=== PATIENT | female | born 1995 | race Caucasian/White ===

== ENCOUNTER 2018-07-29 08:39 | Inpatient (IN) ==
--- NOTE | 2018-07-29 09:35 | P.HPOB ---
History of Present Illness Service: obstetrics Primary Care Physician: NOT REQUIRED Chief Complaint: scheduled repeat at term History of Present Illness: 22 yo with EDC 08/03/18 admit for scheduled repeat at 39w2d due to hx of for desired elective repeat. care uncomplicated except for hx of and obesity . Total weight gain during 11 pounds. Normal growth on ultrasound and reactive testing in office. GBS +. No LOF or VB, good FM, no regular contractions. Pain 2/10 low pelvic pressure. Weeks Gestation:: 39 Para: 1 : 2 Total # of Miscarriage(s): 0 Total # of Abortions (Spontaneous & Elective): 0 - Inpatient Certification I certify that the inpatient services were ordered in accordance with Medicare regulations governing the order. This includes certification that hospital inpatient services are reasonable and necessary and in the case of services not specified as inpatient-only under 42 CFR 419.22(n), that they are appropriately provided as inpatient services in accordance to with the 2-midnight benchmark under 43 CFR 412.3(e) Estimated Total Length of Stay (Days): 4 Plans for Post Hospital Care: Home Review of Systems All other systems reviewed negative except as stated in HPI PMFSH - Medical / Surgical Hx Neg / Unobtainable Medical Problems Denied: Yes - Surgical History Surgical History: Surgical History (Last Updated 06/09/18 @ 18:17 by Rigoberto Perez MD) Previous section - Family History Family History: Family History (Last Updated 07/29/18 @ 09:32 by Aliyah Weston MD) Other No significant family history - Social History I have reviewed the patient's Social History: Yes - Tobacco History Second Hand Smoke Exposure: No Tobacco Use In Past 30 Days: No Smoking Status: Never smoker - Alcohol History How Often Do You Have a Drink Containing Alcohol: Never - Substance Use History Substance History: No History of Abuse - Travel History History of Recent Travel: No Recent Travel in the [place] Within the Last 8 Weeks: No Recent Travel Out of the Country Within the Last 8 Weeks: No - Immunization History Hx Influenza Vaccine This Season: No Medications and Allergies Allergies Allergy/AdvReac Type Severity Reaction Status Date / Time No Known Allergies Allergy Verified 06/09/18 18:16 Home Medications Medication Instructions Recorded Confirmed Type vit,[id number] 1 tab PO DAILY 06/09/18 07/29/18 History [PNV 29-1] Exam Vital signs: Vital Signs 07/29/18 09:04 Temperature 98.1 F Pulse Rate 84 Respiratory Rate 17 Blood Pressure 140/78 Intake & Output 07/28/18 07/29/18 07/29/18 18:59 06:59 18:59 Weight 107.048 kg Other: Weight On Admission 107.048 kg - Constitutional no acute distress - Routine HEENT Exam Head: Present: normocephalic, atraumatic Eye: Present: EOMI, PERRL ENT: Present: mucous membranes moist - Routine Neck Exam Present: supple, full ROM - Routine Chest/Breast/Axilla Exam Chest wall: Absent: tenderness, mass - Routine Respiratory Exam Present: CTA bilaterally. Absent: accessory muscle use - Routine Cardiovascular Exam Present: RRR. Absent: bradycardia - Routine Abdominal Exam Absent: tenderness Comments: gravid c/w dates - Routine Extremities Exam Absent: cyanosis, clubbing - Routine Skin Exam Present: intact. Absent: cyanosis - Routine Neurological Exam Present: alert, oriented X3 Results - Labs Group B Strep: Positive Caprini VTE Risk Assessment Caprini VTE Risk Assessment: No/Low Risk (score <= 1) VTE Pharmacological Exception Reason: Epidural catheter Caprini Risk Assessment Model: Point Value = 1 Point Value = 2 Point Value = 3 Point Value = 5 Age 41-60 Minor surgery BMI > 25 kg/m2 Swollen legs Varicose veins or History of unexplained or recurrent spontaneous Oral contraceptives or hormone replacement Sepsis (< 1 month) Serious lung disease, including pneumonia (< 1 month) Abnormal pulmonary function Acute myocardial infarction Congestive heart failure (< 1 month) History of inflammatory bowel disease Medical patient at bed rest Age 61-74 Arthroscopic surgery Major open surgery (> 45 min) Laparoscopic surgery (> 45 min) Malignancy Confined to bed (> 72 hours) Immobilizing plaster cast Central venous access Age >= 75 History of VTE Family history of VTE Factor V Leiden Prothrombin [id number] Lupus anticoagulant Anticardiolipin antibodies Elevated serum homocysteine Heparin-induced thrombocytopenia Other congenital or acquired thrombophilia Stroke (< 1 month) Elective arthroplasty Hip, pelvis, or leg fracture Acute spinal cord injury (< 1 month) Prophylaxis Regimen: Total Risk Factor Score Risk Level Prophylaxis Regimen 0-1 Low Early ambulation 2 Moderate Order ONE of the following: *Sequential Compression Device (SCD) *Heparin 5000 units SQ BID 3-4 Higher Order ONE of the following medications: *Heparin 5000 units SQ TID *Enoxaparin/Lovenox 40 mg SQ daily (WT < 150 kg, CrCl > 30 mL/min) *Enoxaparin/Lovenox 30 mg SQ daily (WT < 150 kg, CrCl > 10-29 mL/min) *Enoxaparin/Lovenox 30 mg SQ BID (WT < 150 kg, CrCl > 30 mL/min) AND/OR *Sequential Compression Device (SCD) 5 or more Highest Order ONE of the following medications: *Heparin 5000 units SQ TID (Preferred with Epidurals) *Enoxaparin/Lovenox 40 mg SQ daily (WT < 150 kg, CrCl > 30 mL/min) *Enoxaparin/Lovenox 30 mg SQ daily (WT < 150 kg, CrCl > 10-29 mL/min) *Enoxaparin/Lovenox 30 mg SQ BID (WT < 150 kg, CrCl > 30 mL/min) AND *Sequential Compression Device (SCD) Assessment and Plan - Diagnosis (1) History of delivery, currently Code(s): Z98.891 - History of uterine scar from previous surgery Status: Acute (2) Previous section Code(s): Z98.891 - History of uterine scar from previous surgery Status: Acute (3) 39 weeks gestation of Code(s): O26.899 - Other specified related conditions, unspecified trimester; R10.9 - Unspecified abdominal pain Status: Acute - Plan 22 yo with EDC 08/03/18 admit for scheduled repeat due to hx of . 1) repeat : r/b/a of procedure d/w pt, declines option of tubal ligation at time of procedure, consents signed, proceed 2) GBS + 3) obese: passed 1h GTT and normal growth on office imaging 4) status: Cat I tracing currently, male fetus, vertex, EFW 7.5# 5) dispo: anticipate discharge 2-3d PP Discharge Plannin-3d PP
[2018-07-29] MEDS ORDERED: Citric Acid/Sodium Citrate Liq 30 ML UDC PO SCH (09:45)
[2018-07-29] MEDS ORDERED: Morphine Sulfate PF Inj 5 MG/10 ML Ampul ONE (09:50)
[2018-07-29 10:01] LABS: Baso # (Auto) 0.1 th/mm3 (0.0-0.2); Baso % (Auto) 0.4 % (0.0-2.0); Eos # (Auto) 0.2 th/mm3 (0.0-0.4); Eos % (Auto) 1.3 % (0.0-4.0); Hematocrit 35.9 % (35.0-46.0); Hemoglobin 11.8 gm/dL (11.6-15.3); Lymph # (Auto) 2.9 th/mm3 (1.0-4.8); Lymph % (Auto) 19.1 % (9.0-44.0); Mean Corpuscular HGB Conc 32.8 % (32.0-36.0); Mean Corpuscular Hemoglobin 28.5 pg (27.0-34.0); Mean Corpuscular Volume 86.8 fL (80.0-100.0); Mean Platelet Volume 10.9 fL (7.0-11.0); Mono # (Auto) 1.1 th/mm3 (0.0-0.9); Mono % (Auto) 7.4 % (0.0-8.0); Neut % (Auto) 71.8 % (16.0-70.0); Platelet Count 201 th/mm3 (150-450); Red Blood Count 4.14 mil/mm3 (4.00-5.30); Red Cell Distribution Width 15.3 % (11.6-17.2); White Blood Count 15.3 th/mm3 (4.0-11.0)
[2018-07-29 10:05] LABS: Bacteria,Urine Rare /hpf; Bilirubin,Urine Negative (Negative); Clarity,Urine Hazy (Clear); Color,Urine Yellow (Yellw/Straw); Glucose,Urine (UA) Negative (Negative); Leukocyte Esterase,Urine Trace (Negative); Mucus,Urine Moderate /lpf (Occasional); Nitrite,Urine Negative (Negative); Specific Gravity,Urine 1.029 (1.002-1.035); Squamous Epithelial Cell,Urine 7 /hpf (0-5)
[2018-07-29 10:08] LABS: Amphetamine Screen,Urine Neg (Neg); Barbiturate Screen,Urine Neg (Neg); Cannabinoid Screen,Urine Neg (Neg); Cocaine Screen,Urine Neg (Neg)
[2018-07-29 10:09] LABS: Opiate Screen,Urine Neg (Neg)
[2018-07-29] MEDS ORDERED: ceFAZolin 2 GM Premix Inj 2 GM/50 ML PIGGYBACK IV.SIG PRN (10:30)
[2018-07-29] MEDS ORDERED: Influenza (Quadrivalent) Vaccine 0.5 ML Syringe IM ONE (10:30)
[2018-07-29] MEDS ORDERED: Zolpidem Tartrate 5 MG Tablet PO PRN (11:35)
[2018-07-29] MEDS ORDERED: Oxytocin 30 Units/500ml Premix 30 UNITS/500 ML BAG IV.SIG ONE (11:35)
[2018-07-29] MEDS ORDERED: Acetaminophen 325 MG Tablet PO PRN (11:35)
--- NOTE | 2018-07-29 11:38 | P.OBDELI ---
Procedure Note - Pre Op Diagnosis (1) History of delivery, currently (2) 39 weeks gestation of - Post Op Diagnosis (1) S/P repeat low transverse Performed by: Aliyah Weston MD Procedure: Repeat Low Transverse Section Indication for Delivery: Desired elective repeat Informed Consent Obtained: For anesthesia, For procedure Confirmed Correct: Patient, Procedure, Site, Time-out taken Anesthesia: Spinal Medication Prior to Procedure: As documented in eMAR Monitoring During Procedure: Blood pressure monitoring, compliance monitor, doppler, Pulse oximetry Urinary Catheter: Inserted using sterile technique, To dependent drainage, ml urine output (100) Sterile Preparation: Duraprep, In usual fashion, With drapes to expose affected area Position: Supine with wedge to right side - Operative Features Skin Incision: Pfannenstiel Uterine Incision: Low transverse w/knife / scissors Membranes Ruptured: Artificially, Amount of liquid (moderate), Appearance of fluid (clear) Presentation: Vertex, Other (occult cord prolapse at time of hysterotomy) Status of : Viable, Cord blood Placenta Delivered: Intact Medications: Antibiotics (ancef 2g IV preop) Estimated blood loss (mL): 500 Procedure Tolerated: Well Maternal Condition: Stable Baby Condition: Stable Procedure in Detail: see dictated op note - Infant Infant: Male Male A Infant Delivery Date: 07/29/18 Infant Delivery Time: 11:01 Weight: 3.25 kg Delivery of Infant: Uneventful, Umbilical cord (occult prolapse at time of hysterotomy) score (1 min): 9 score (5 min): 9
[2018-07-29] MEDS ORDERED: fentaNYL Citrate Inj 100 MCG/2 ML Ampul ONE (11:51)
--- NOTE | 2018-07-29 12:13 | MP ---
cc: Aliyah Weston MD DATE OF OPERATION: 07/29/2018 PREOPERATIVE DIAGNOSES: 1. Arroyo intrauterine at 39 weeks and 2 days. 2. History of delivery for elective repeat. POSTOPERATIVE DIAGNOSES: 1. Arroyo intrauterine at 39 weeks and 2 days. 2. History of delivery for elective repeat. 3. Postoperative day #0. INDICATIONS: Margarita Richards is a 22-year-old 2, now para 2-0-0-2, who has a history of an emergency 3 years ago for nonreassuring heart tones. She desired elective repeat at term, she was counseled and scheduled. PROCEDURE PERFORMED: Repeat low transverse delivery. SURGEON: Aliyah Weston MD TYPE OF ANESTHESIA: Spinal. ESTIMATED BLOOD LOSS: 500 mL. IV FLUID REPLACEMENT: 2300 mL. URINE OUTPUT: Approximately 100 mL of clear urine drained in the Valencia bag at the conclusion of the procedure. PROPHYLAXIS: Ancef 2 grams IV was given preoperatively and SCDs were functioning throughout the entire case. COUNTS: Sponge, lap, instrument and needle counts were correct x2 at the conclusion of the procedure. COMPLICATIONS: Minimal adhesive disease of the omentum to the lower uterine segment. This was successfully lysed prior to hysterotomy. INTRAOPERATIVE FINDINGS: Include a vigorous viable male in vertex position. There was an occult cord prolapse at the time of the hysterotomy. weight 3250 grams correlating to approximately 7 pounds 3 ounces. Amniotic fluid was clear. Normal-appearing bilateral fallopian tubes and ovaries. There was moderate scar tissue of the omentum to the lower uterine segment. This was successfully lysed prior to hysterotomy. SPECIMENS: None. PROCEDURE IN DETAIL: After reviewing the informed consent, the patient was taken to the operating suite, where a timeout was performed to identify the patient, planned procedure, any known allergies to drugs or drug products. The patient was then placed sitting up on the exam table and spinal anesthesia was administered without difficulty and found to be adequate. The patient was then placed in dorsal supine position with a bump under her right side and abdomen and perineum were prepped and draped in normal sterile fashion. A Valencia catheter was placed using sterile technique. Pfannenstiel type skin incision was made with the scalpel and carried down to the underlying layer of fascia with the Bovie. Fascia was incised in the midline and the incision was extended laterally with sharp dissection using Pizarro scissors. Superior aspect of the fascial incision was elevated with Cari clamps. Rectus muscles were dissected off sharply with Pizarro scissors. Kochers then moved inferiorly on the fascial incision and again rectus muscles were dissected off sharply. The rectus muscles were then in the midline. Peritoneum was identified and entered bluntly with surgeon's index finger. On entry into the peritoneal cavity, it was noted that there was a small piece of omentum that was tacked down to the area of the healed prior hysterotomy on the lower uterine segment. This was doubly clamped with Kellys, cut and suture ligated bilaterally with 0 Vicryl ties with excellent hemostasis noted. A low transverse uterine incision was then made with the scalpel. Incision was extended bluntly. On entry into the amniotic sac, there was immediate occult cord prolapse, which was reduced. Infant's head was then grasped and flexed out through the incision. With gentle maneuvering, the rest of the infant easily delivered. Infant was immediately crying and vigorous upon delivery. Delayed cord clamping at 45 seconds was performed. Cord was then doubly clamped and cut and the infant was handed off to the awaiting nursery staff. Cord blood sample was taken. The placenta was delivered spontaneously with gentle cord traction and fundal massage. The uterus was exteriorized, cleared of all clots and debris with sterile moist lap sponges. The hysterotomy was repaired in a double-layer, first in a running locked layer, then an imbricating layer with #1 chromic. Posterior cul-de-sac was irrigated copiously with warm sterile saline. Uterus was returned to the abdomen. Additional irrigation with suction was performed with excellent hemostasis noted. A layer of Interceed was placed over the repaired hysterotomy to act as an adhesion barrier. Peritoneum was reapproximated with 2-0 chromic in a running fashion. The fascia was closed in a running layer with #1 Vicryl. Subcutaneous tissue was closed in a series of interrupted sutures using 2-0 chromic. The skin was then cleaned and dried and using a subcuticular suture with 3-0 Monocryl, the skin was closed. Steri-Strips were placed as was the standard dressing. The procedure concluded at this point. DISPOSITION: The patient tolerated the procedure well with complications as noted above. Infant is nursery status. ESTIMATED LENGTH OF STAY: Two to three postoperative days. MD Victoria Howard , 11:46 AM , 11:55 AM RIAZ
[2018-07-29] MEDS ORDERED: Naloxone Inj 0.4 MG/ML Vial IV.PUSH PRN (14:37)
[2018-07-29] MEDS ORDERED: Oxytocin 30 Units/500ml Premix 30 UNITS/500 ML BAG IV.SIG PRN (16:35)
[2018-07-30] MEDS: Simethicone 80 MG Chew Tablet PO PRN ×2 (04:43→23:48)
[2018-07-30] MEDS: Senna/Docusate Sodium 8.6/50 MG Tablet PO PRN ×2 (04:44→17:02)
[2018-07-30 05:52] LABS: Baso % (Auto) 0.2 % (0.0-2.0); Eos % (Auto) 0.2 % (0.0-4.0); Hematocrit 31.8 % (35.0-46.0); Hemoglobin 10.3 gm/dL (11.6-15.3); Lymph # (Auto) 2.7 th/mm3 (1.0-4.8); Lymph % (Auto) 13.1 % (9.0-44.0); Mean Corpuscular HGB Conc 32.6 % (32.0-36.0); Mean Corpuscular Hemoglobin 28.2 pg (27.0-34.0); Mean Corpuscular Volume 86.7 fL (80.0-100.0); Mean Platelet Volume 10.9 fL (7.0-11.0); Mono # (Auto) 1.4 th/mm3 (0.0-0.9); Mono % (Auto) 6.6 % (0.0-8.0); Neut # (Auto) 16.7 th/mm3 (1.8-7.7); Neut % (Auto) 79.9 % (16.0-70.0); Platelet Count 204 th/mm3 (150-450); Red Blood Count 3.66 mil/mm3 (4.00-5.30); Red Cell Distribution Width 15.5 % (11.6-17.2); White Blood Count 20.9 th/mm3 (4.0-11.0)
--- NOTE | 2018-07-30 07:43 | P.PNOB ---
Subjective Post op day: 1 Interval history: Doing well, pain controlled, vaginal bleeding last menses, ambulating without difficulty, voiding spontaneously, tolerating regular diet without nausea or vomiting Objective Vital Signs/I&O: Vital Signs 07/29/18 09:04 07/29/18 11:40 07/29/18 11:54 Temperature 98.1 F 97.8 F Pulse Rate 84 72 71 Respiratory Rate 17 17 17 Blood Pressure 140/78 117/69 07/29/18 11:55 07/29/18 12:02 07/29/18 12:17 Temperature Pulse Rate 69 86 Respiratory Rate 18 18 Blood Pressure 116/68 109/56 L 114/59 L 07/29/18 13:00 07/29/18 16:00 07/29/18 20:20 Temperature 97.8 F 97.5 F L 98.6 F Pulse Rate 65 71 79 Respiratory Rate 18 18 18 Blood Pressure 100/62 101/56 L 102/66 07/29/18 23:50 07/30/18 04:10 Temperature 98.9 F 98.5 F Pulse Rate 78 74 Respiratory Rate 20 18 Blood Pressure 115/67 112/60 Intake & Output 07/29/18 07/30/18 07/30/18 18:59 06:59 18:59 Intake Total 1000 / 1000 Balance 1000 / 1000 Weight 107.048 kg Intake: IV 1000 / 1000 LR 1000 mL Inj 1,000 ML @ 100 1000 / 1000 mls/hr IV.CONT .Q10H [facility] Rx#: [id number] Other: Weight On Admission 107.048 kg Result Diagrams: 07/30/18 04:58 Objective Remarks: GENERAL: Well-nourished, well-developed patient. CARDIOVASCULAR: Regular rate and rhythm without murmurs, gallops, or rubs. RESPIRATORY: Breath sounds equal bilaterally. No accessory muscle use. ABDOMEN/GI: Abdomen soft, non-tender, bowel sounds present. Bandage clean, dry and intact. Fundus: Firm, non-tender at umbilicus. GENITOURINARY: Light to moderate bleeding. EXTREMITIES: No cyanosis or edema, non-tender, without signs of DVT. Medications and IVs: Active Medications Acetaminophen (Tylenol) 650 mg PO Q6H PRN PRN Reason: PAIN SCALE 1 TO 2 Diphenhydramine HCl (Benadryl) 50 mg PO Q6H PRN PRN Reason: MILD TO MODERATE ITCHING Stop: 07/30/18 14:36 Diphenhydramine HCl (Benadryl Inj) 25 mg IV.PUSH Q6H PRN PRN Reason: MILD TO MODERATE ITCHING Stop: 07/30/18 14:36 Diphtheria/Pertussis/Tetanus Vacc (Boostrix Vaccine Inj) 0.5 ml IM .ONCE ONE Stop: 07/30/18 16:01 Lactated Ringer's (Lr 1000 Ml Inj) 1,000 mls @ 100 mls/hr IV.CONT .Q10H GABRIEL Stop: 07/30/18 12:34 Last Admin: 07/30/18 04:42 Dose: Not Given Oxytocin (Pitocin 30 Units/Ns 500 Ml Premix) 30 units in 500 mls @ 100 mls/hr IV.SIG UNSCH PRN PRN Reason: Heavy bleeding Ibuprofen (Motrin) 800 mg PO Q8H PRN PRN Reason: cramping Last Admin: 07/30/18 04:43 Dose: 800 mg Ketorolac Tromethamine (Toradol Inj) 30 mg IM Q6H PRN PRN Reason: SEE LABEL COMMENTS Measles/Mumps/Rubella Vaccine Live (M-M-R Ii Vaccine Inj) 0.5 ml SQ .ONCE ONE Stop: 07/30/18 16:01 Miscellaneous Information ([facility] Nursing Information) 1 each OTHER UNSCH PRN PRN Reason: SEE LABEL COMMENTS Stop: 07/30/18 14:36 Naloxone HCl (Narcan Inj) 0.4 mg IV.PUSH UNSCH PRN PRN Reason: SEE LABEL COMMENTS Stop: 07/30/18 14:36 Ondansetron HCl (Zofran Inj) 4 mg IV.PUSH Q6H PRN PRN Reason: NAUSEA OR VOMITING Oxycodone/Acetaminophen (Percocet 5/325 Mg) 1 tab PO Q4H PRN PRN Reason: PAIN SCALE 3 TO 5 Oxycodone/Acetaminophen (Percocet 5/325 Mg) 2 tab PO Q4H PRN PRN Reason: PAIN SCALE 6 TO 10 Senna/Docusate Sodium (Jenifer-Colace) 2 tab PO Q12H PRN PRN Reason: CONSTIPATION Last Admin: 07/30/18 04:44 Dose: 2 tab Simethicone (Mylicon Chew) 80 mg PO QID PRN PRN Reason: FLATULENCE Last Admin: 07/30/18 04:43 Dose: 80 mg Sodium Chloride (Ns Flush) 2 ml IV.FLUSH BID GABRIEL Last Admin: 07/29/18 21:06 Dose: Not Given Sodium Chloride (Ns Flush) 2 ml IV.FLUSH PRN PRN PRN Reason: FLUSH AFTER USING IV ACCESS Zolpidem Tartrate (Ambien) 5 mg PO HS PRN PRN Reason: INSOMNIA Assessment and Plan - Diagnosis (1) History of delivery, currently Code(s): Z98.891 - History of uterine scar from previous surgery Status: Acute (2) Previous section Code(s): Z98.891 - History of uterine scar from previous surgery Status: Acute (3) 39 weeks gestation of Code(s): O26.899 - Other specified related conditions, unspecified trimester; R10.9 - Unspecified abdominal pain Status: Acute - Plan 22-year-old status post scheduled repeat low transverse at 39 weeks. 1. Postoperative day #1: Afebrile, vital signs stable, a.m. hemoglobin noted and appropriate, continue routine postoperative and care, anticipate dc home next 48hrs - male new born, plans for circ by peds after d/c.
[2018-07-30] MEDS ORDERED: Measles/Mumps/Rubella Vaccine Inj 0.5 ML Vial SQ ONE (16:00)
[2018-07-30] MEDS ORDERED: Diphtheria/Tetanus/Pertussis Vaccine Inj 0.5 ML Syringe IM ONE (16:00)
[2018-07-30 19:49] VITALS: RESP 20
[2018-07-31 07:51] VITALS: BP 102/63; PULSE 76; TEMP 97.9
--- NOTE | 2018-07-31 07:58 | P.PNOB ---
Subjective Post op day: 2 Interval history: doing well, +flatus, baby on bili blanket, wants to go home this afternoon if cleared Objective Vital Signs/I&O: Vital Signs 07/30/18 08:00 07/30/18 19:48 07/31/18 07:50 Temperature 97.7 F 97.6 F 97.9 F Pulse Rate 61 96 H 76 Respiratory Rate 18 20 20 Blood Pressure 111/69 114/71 102/63 Result Diagrams: 07/30/18 04:58 Objective Remarks: GENERAL: Well-nourished, well-developed patient. CARDIOVASCULAR: Regular rate and rhythm without murmurs, gallops, or rubs. RESPIRATORY: Breath sounds equal bilaterally. No accessory muscle use. ABDOMEN/GI: Abdomen soft, non-tender, bowel sounds present. Incision: Clean, dry and intact. Fundus: Firm, non-tender at umbilicus. GENITOURINARY: Light to moderate bleeding. EXTREMITIES: No cyanosis or edema, non-tender, without signs of DVT. Medications and IVs: Active Medications Acetaminophen (Tylenol) 650 mg PO Q6H PRN PRN Reason: PAIN SCALE 1 TO 2 Oxytocin (Pitocin 30 Units/Ns 500 Ml Premix) 30 units in 500 mls @ 100 mls/hr IV.SIG UNSCH PRN PRN Reason: Heavy bleeding Ibuprofen (Motrin) 800 mg PO Q8H PRN PRN Reason: cramping Last Admin: 07/30/18 23:48 Dose: 800 mg Ketorolac Tromethamine (Toradol Inj) 30 mg IM Q6H PRN PRN Reason: SEE LABEL COMMENTS Ondansetron HCl (Zofran Inj) 4 mg IV.PUSH Q6H PRN PRN Reason: NAUSEA OR VOMITING Oxycodone/Acetaminophen (Percocet 5/325 Mg) 1 tab PO Q4H PRN PRN Reason: PAIN SCALE 3 TO 5 Last Admin: 07/31/18 01:39 Dose: 1 tab Oxycodone/Acetaminophen (Percocet 5/325 Mg) 2 tab PO Q4H PRN PRN Reason: PAIN SCALE 6 TO 10 Senna/Docusate Sodium (Jenifer-Colace) 2 tab PO Q12H PRN PRN Reason: CONSTIPATION Last Admin: 07/30/18 17:02 Dose: 2 tab Simethicone (Mylicon Chew) 80 mg PO QID PRN PRN Reason: FLATULENCE Last Admin: 07/30/18 23:48 Dose: 80 mg Sodium Chloride (Ns Flush) 2 ml IV.FLUSH BID GABRIEL Last Admin: 07/30/18 21:33 Dose: Not Given Sodium Chloride (Ns Flush) 2 ml IV.FLUSH PRN PRN PRN Reason: FLUSH AFTER USING IV ACCESS Zolpidem Tartrate (Ambien) 5 mg PO HS PRN PRN Reason: INSOMNIA Assessment and Plan - Diagnosis (1) History of delivery, currently Code(s): Z98.891 - History of uterine scar from previous surgery Status: Acute (2) Previous section Code(s): Z98.891 - History of uterine scar from previous surgery Status: Acute (3) 39 weeks gestation of Code(s): O26.899 - Other specified related conditions, unspecified trimester; R10.9 - Unspecified abdominal pain Status: Acute (4) S/P repeat low transverse Code(s): Z98.891 - History of uterine scar from previous surgery Status: Acute - Plan 22-year-old status post scheduled repeat low transverse at 39 weeks. 1. Postoperative day #2: Afebrile, vital signs stable, a.m. hemoglobin noted and appropriate, continue routine postoperative and care, anticipate dc home next 48hrs - male new born, plans for circ by peds after d/c. Discharge Plannin-3d PP - Attending Attestation pt seen by me
== END 2018-07-31 11:27 | disposition home or self-care (01) ==
LOC: H2E 08:39 → H1EA 12:42
PROVIDERS: ADMIT Obstetrics & Gynecology; ATTEND Obstetrics & Gynecology